=== PATIENT | female | born 1965 | race Caucasian/White ===

== ENCOUNTER → 2017-09-01 16:56 | Outpatient (CLI) | payer OTHER, SELFPAY ==
--- NOTE | 2017-09-01 17:04 | RAD_ITS ---
STUDY: X-RAY - CERVICAL SPINE REASON FOR EXAM: Female, 52 years old. HEADACES, NUMBNESS AND TINGLING DOWN BOTH ARMS. TECHNIQUE: 5 view(s) of the cervical spine were obtained. COMPARISON: None FINDINGS: Normal anterior atlantoaxial articulation. Normal odontoid process. Normal cervical lordosis. Normal vertebral bodies and endplates. Normal disc space heights. Normal visualized intervertebral neuroforamina. The soft tissue structures are unremarkable. RAD/Cerv Spine 4 or 5 Views IMPRESSION: Normal x-ray examination of the visualized cervical spine. Electronically Signed: Lissa Jay MD at 9:51 EDT Tel , Service support ,
--- NOTE | 2017-09-01 17:27 | MRI_ITS ---
STUDY: MRI LUMBAR SPINE WITHOUT CONTRAST REASON FOR EXAM: Female, 52 years old. Low back pain radiating to left lower extremity TECHNIQUE: Standardized fat and water weighted pulse sequences were obtained in the sagittal and axial planes. COMPARISON: None FINDINGS: T12-L1: Normal endplates. Normal disc height, hydration and morphology. Normal bilateral facet joints. Normal central canal and bilateral lateral recesses. Normal bilateral intervertebral neural foramina. Normal lumbar lordosis. There is no substantial scoliosis. Normal conus medullaris that terminates at T12-L1 L1-2: Normal endplates. Normal disc height, hydration and morphology. Normal bilateral facet joints. Normal central canal and bilateral lateral recesses. Normal bilateral intervertebral neural foramina. L2-3: Normal endplates. Normal disc height, hydration and morphology. Normal bilateral facet joints. Normal central canal and bilateral lateral recesses. Normal bilateral intervertebral neural foramina. L3-4: Normal endplates. Normal disc height, desiccation and mild annular bulge with small central disc protrusion.. Normal bilateral facet joints. Mild narrowing of the central canal. Normal bilateral recesses Normal bilateral intervertebral neural foramina. L4-5: Degenerative endplate changes.. Normal disc height, desiccation and mild annular bulge.. Bilateral facet arthropathy.. Mild narrowing of the central canal. Moderate bilateral recess and neuroforaminal stenosis L5-S1: Normal endplates. Narrowed disc space with desiccation of the disc and mild to moderate annular bulge. Bilateral facet arthropathy.. Normal central canal. Moderate bilateral recess and neuroforaminal stenosis Normal visualized sacral ala. Incidental finding of small right renal nodule. Would recommend CT for further evaluation Normal visualized paraspinous soft tissue structures. MRI/Spine Lumbar (Routine) IMPRESSION: Spinal stenosis at L4-5 and L5-S1 secondary to disc disease and bony hypertrophy.. Incidental finding of small right renal nodule which may be better assessed with CAT scan to exclude possibility of neoplasm. Electronically Signed: Cesar Serna MD at 21:08 EDT , Service support ,
== END ==
PROVIDERS: Family Provider Family Medicine; PCP Family Medicine; Visit Provider Anesthesiology Pain Medicine
DX: M54.17 Radiculopathy, lumbosacral region (principal); M54.2 Cervicalgia; M51.37 Other intervertebral disc degeneration, lumbosacral region; M47.817 Spondylosis without myelopathy or radiculopathy, lumbosacral region
CPT/HCPCS: 72050; 72148

== ENCOUNTER 2017-09-07 11:10 | Emergency (ER) | payer OTHER, SELFPAY ==
[2017-09-07 11:10] VITALS: BP 151/86; PULSE 90; RESP 16; TEMP 36.9; O2SAT 99; BMI 27.5
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
--- NOTE | 2017-09-07 11:32 | DCINST.ED_ITS ---
ED Disposition - Plan for ED Patient: Chief Complaint: Other, Pain/Inj Instructions: ED Neck Pain No Trauma Prescriptions: Hydrocodone Bitart/Apap 5-325 [[place] 5/325] 1 - 2 tab PO Q4H PRN PRN 3 Days #12 tab PRN Reason: Pain Naproxen [Naprosyn] 500 mg PO BID PRN #20 tab Cyclobenzaprine [Flexeril] 10 mg PO TID PRN #20 tab PRN Reason: Muscle Spasm Referrals: Kishore Fletcher III, MD [Primary Care Provider] - Mele Bell [NON-STAFF] - 3-5 Days
[2017-09-07] MEDS: HYDROmorphone 1 MG/ML Syringe IM (11:40)
[2017-09-07] MEDS: Orphenadrine 60 MG/2 ML Ampul IM (11:41)
[2017-09-07 12:10] VITALS: BP 126/67; PULSE 71; RESP 17; O2SAT 97
== END 2017-09-07 12:12 | disposition home or self-care (01) ==
LOC: ED 11:35
PROVIDERS: Emergency Provider Emergency Medicine; Family Provider Family Medicine; PCP Family Medicine
DX: M54.2 Cervicalgia (principal); G89.29 Other chronic pain; M54.30 Sciatica, unspecified side; Z79.899 Other long term (current) drug therapy
CPT/HCPCS: 96372; 99282